=== PATIENT | female | born 2000 | race Caucasian/White ===

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

== ENCOUNTER 2021-03-25 14:36 | Outpatient (RCR) | payer BC, SELFPAY ==
[2021-03-25 08:18] VITALS: BMI 23.9
[2021-03-25 18:17] LABS: Absolute Lymphocyte Count 1.73 X10^3/uL (0.83-4.51); Absolute Neutrophil Count 3.2 X10^3/uL (2.0-7.7); Basophil# 0.04 X10^3/uL; Basophil% 0.7 % (0-1); Eosinophil# 0.03 X10^3/uL; Eosinophils% 0.6 % (0-5); Hematocrit 45.2 % (37-47); Hemoglobin 14.1 g/dL (12.0-15.0); Lymphocyte # 1.73 X10^3/ul (0.83-4.51); Lymphocyte % 32.2 % (19-41); Mean Corp Hgb Conc 31.2 g/dL (32-36); Mean Corpuscular Hgb 26.1 pg (27.0-32.0); Mean Corpuscular Volume 83.7 fL (81-99); Mean Platelet Vol. 10.8 fl (6.2-12.0); Monocyte# 0.42 X10^3/uL; Monocyte% 7.8 % (0-10); NRBC Flagged by Analyzer 0 % (0-5); Neutrophil # 3.15 X10^3/uL (2.7-7.7); Neutrophil % 58.5 % (47-70); Platelet Count 333 K/mm3 (150-450); RBC Distribution Width CV 13.3 % (11.6-14.6); RBC Distribution Width SD 40.8 fl (35.1-43.9); White Blood Count 5.4 K/mm3 (4.4-11.0)
[2021-03-25 18:41] LABS: ALB/GLOB Ratio 1.1 RATIO (0.9-2.4); AST(SGOT) 22 U/L (15-37); Alanine Aminotransfer ALT/SGPT 30 U/L (13-56); Albumin, Serum 3.8 g/dL (3.2-5.0); Alkaline Phosphatase 347 U/L (45-117); Anion Gap 3 (5-15); BUN 9 mg/dL (7-18); BUN/Creat Ratio 10.1 RATIO (10-20); Calcium,Total 9.4 mg/dL (8.5-10.1); Chloride 106 mmol/L (98-107); Creatinine, Serum 0.89 mg/dL (0.55-1.02); EST Glomerular Filtration Rate 86 mL/min (>60); Est Glom Filt Rate - Afr Amer 103 mL/min (>60); Globulin 3.5 g/dL (2.2-4.2); Glucose 80 mg/dL (74-106); Magnesium 2.2 mg/dL (1.6-2.6); Phosphorus 3.9 mg/dL (2.5-4.9); Potassium 3.9 mmol/L (3.5-5.1); Protein, Total 7.3 g/dL (6.4-8.2); Sodium Level 141 mmol/L (136-145)
== END 2021-03-25 18:00 | disposition home or self-care (01) ==
LOC: MTLAB 14:36
PROVIDERS: PCP Internal Medicine
DX: F50.89 Other specified eating disorder (principal)
CPT/HCPCS: 36415; 80053; 83735; 84100; 85025

== ENCOUNTER → 2021-04-09 15:52 | Outpatient (CLI) | payer BC, SELFPAY ==
[2021-04-09 09:30] VITALS: BMI 23.9
[2021-04-09 18:08] LABS: AST(SGOT) 19 U/L (15-37); Alanine Aminotransfer ALT/SGPT 27 U/L (13-56); Albumin, Serum 3.7 g/dL (3.2-5.0); Alkaline Phosphatase 333 U/L (45-117); Bilirubin, Direct 0.12 mg/dL (0.00-0.30); Globulin 3.4 g/dL (2.2-4.2); Protein, Total 7.1 g/dL (6.4-8.2)
[2021-04-11 11:42] LABS: GGTP 12 U/L (5-55)
[2021-04-11 20:08] LABS: Chlamydia By Nucleic Acid AMP Negative (Negative)
[2021-04-11 22:39] LABS: Gonococcus By Nucleic Acid AMP Negative (Negative)
== END ==
PROVIDERS: PCP Internal Medicine; Visit Provider Obstetrics & Gynecology
DX: Z11.3 Encounter for screening for infections with a predominantly sexual mode of transmission (principal); N92.1 Excessive and frequent menstruation with irregular cycle
CPT/HCPCS: 36415; 80076; 82977; 87491; 87591

== ENCOUNTER → 2021-04-16 08:31 | Outpatient (CLI) | payer BC, SELFPAY ==
[2021-04-16 08:15] VITALS: BMI 24.3
[2021-04-16 10:25] LABS: HIV - WCH Non-Reactive (Nonreactive)
== END ==
PROVIDERS: PCP Internal Medicine; Visit Provider Obstetrics & Gynecology
DX: Z11.3 Encounter for screening for infections with a predominantly sexual mode of transmission (principal)
CPT/HCPCS: 36415; 86703

== ENCOUNTER → 2022-10-22 | Outpatient (CLI) | payer BC, SELFPAY ==
[2022-10-22 15:36] LABS: Hematocrit 48.9 % (37-47); Mean Corp Hgb Conc 32.7 g/dL (32-36); Mean Corpuscular Hgb 29.1 pg (27.0-32.0); Mean Corpuscular Volume 89.1 fL (81-99); Mean Platelet Vol. 10.1 fl (6.2-12.0); Platelet Count 302 K/mm3 (150-450); RBC Distribution Width CV 13.2 % (11.6-14.6); RBC Distribution Width SD 43.7 fl (35.1-43.9); Red Blood Count 5.49 M/mm3 (4.2-5.4); White Blood Count 6.5 K/mm3 (4.4-11.0)
[2022-10-22 15:50] LABS: Anion Gap 3 (5-15); BUN 6 mg/dL (7-18); BUN/Creat Ratio 6.4 RATIO (10-20); Calcium,Total 9.4 mg/dL (8.5-10.1); Chloride 106 mmol/L (98-107); Creatinine, Serum 0.93 mg/dL (0.55-1.02); EST Glomerular Filtration Rate 80 mL/min (>60); Est Glom Filt Rate - Afr Amer 97 mL/min (>60); Glucose 79 mg/dL (74-106); Potassium 4.5 mmol/L (3.5-5.1); Sodium Level 140 mmol/L (136-145)
[2022-10-22 17:10] LABS: HIV - WCH Non-Reactive (Nonreactive)
[2022-10-22 17:56] LABS: Chlamydia Trachomatis by PCR Negative (Negative); Neisserai gonorrhoeae by PCR Negative (Negative); Probe Check PASS; Sample Adequacy Control PASS; Specimen Processing Control PASS
[2022-10-22 17:57] LABS: Probe Check PASS; Sample Adequacy Control PASS; Specimen Processing Control PASS; Trichomonas Vag DNA by PCR Negative (Negative)
== END | disposition home or self-care (01) ==
PROVIDERS: PCP Internal Medicine
DX: Z79.899 Other long term (current) drug therapy (principal)
CPT/HCPCS: 36415; 80048; 84403; 85027; 86703; 87491; 87591; 87661

== ENCOUNTER 2024-01-15 15:00 | Outpatient (RCR) | payer BC, SELFPAY ==
--- NOTE | 2023-12-04 15:23 | HP.PTEVAL_ITS ---
Patient's Visit Information Visit Information Visit Information: MARY DENG is a 23 year old F referred to Physical Therapy by MAVERICK AGUILAR with a diagnosis of Chronic knee and ankle pain. Date of Evaluation: 12/04/23 Physical Therapist: David Olsen, LEWIST, OCS, CSCS Visit Plan Frequency: 3x /Week Duration: 4-6 Weeks Plan: 3x/week for 4-6 to teach strengthening for ankles, knees, hips, core and postural that patient can do at home with light dumbbells and bands and BW to manage chronic widespread pain. Subjective Subjective: B knee ankle , back and neck pain for a long time. no reason. been there a long time. Over a year on these. ankle pain: B 5-7/10 intermittent, mostly constant, worse with standing or driving. running worse. Not bad when sitting Knee pain : same type thing not as intense Back pain: sitting is painful if sits too long, posture is worse, sitting on computer is worse. Worse in am. neck is worse in am. Sleep is Ok, wakes up but that is normal for him. Employed: Will have surgery in begin of March. Total hysterctomy. Hobbies: Art and music, collaging, dog and cat. Limited dog walking due to pain. Basic ADLs: No problems. Walking is main exercise Objective Objective: Walks with extrenally rotated legs and slumped posture into PT I. Trasnfers I, steps I with a rail. No antalgia in gait or c/o much pain today. FW head posture with flat lumbar lordosis, slouched shoulders. Cervical and lumbar AROM is WFL and without c/o pain today. UE AROM mobile and full with strength flexion and er at 3+, abd 3+, bi and tri 4-. No myotomal abnormalities UE or LE. LE AROM WFL and hypermobile at hips and knees and ankles. Flexibility in HS and quads is good. reflexes 2/3 bi and tri adn patella and achilles Sensation in UE dn LE WNL to gross light touch. strength in core is 3/5 hips rotation and abd and ext 3/5, flexion 3+ but much pelvic instability in sitting and contralateral ext rotation. knees and ankles 3+/5 strength No real c/o pain with strength testing. Overall hypermobile and unstable - slump and - SLR - c/s compression. Balance/Special Test Scores Lower Extremity Functional Score: 64 Goals Goal 1:: I apperopriate HEp for ankle, knee, hip, core adn postural strength via HEP to limit future problems. Goal Time Frame: 4-6 Weeks Goal 2:: Pain in knees and ankles and spine 2/10 at worst adn 75% improved. Goal Time Frame: 4-6 Weeks Goal 3:: LEFS 70 Goal Time Frame: 4-6 Weeks Rehabilitation Potential Physical Therapy Diagnosis: weakness and instability leading to joint pain and diminished comfort with function Rehabilitation Potential: Good Anticipated Interventions Patient/Client Instruction: Educate patient on: Condition For the Purpose of:: To decrease pain, To improve muscle performance and motor function and To increase tolerance to activity/condition/position Therapeutic Exercise to Include: Strength training and Dynamic Lumbar Stabilization For the Purpose of:: To decrease pain, To improve nutrient delivery to tissue, To improve muscle performance and motor function, To increase tolerance to activity/condition/position and To improve ability of physical actions for home/community/work/leisure Text: Thank you for the opportunity to evaluate your patient. For Medicare and Medicare HMO plans, please review the plan of care and approve it. It will need to be FAXED BACK to us at [phone] for Medicare purposes. For Medicare only, by signing this I certify the plan of care. Please let me know if there are questions or concerns regarding this plan of care. Physician Signature: Date:
--- NOTE | 2024-01-15 15:43 | HP.PTDCSUM ---
Discharge Summary D/C summary: It has been my pleasure to treat MARY DENG referred by MAVERICK AGUILAR, with the diagnosis of Chronic knee and ankle pain for a total of 18 visit(s). Discharge Date: 01/15/24 Please see the following information for a summary of their discharge status. Subjective Subjective: Feel stronger, Pain daily 5/10 back and L foot. Knees feel alot better. Sleep is not great, not a great sleeper. Feels stronger. Can do less grocery trips from car and core stronger, sitting straighter. To doctor in March. HEP: has great HEP that he will keep doing. Pain Bilateral Back: Pain Intensity (Out of 10): 5 Bilateral Ankle: Pain Intensity (Out of 10): 4 Bilateral Knee: Pain Intensity (Out of 10): 1 Overall Improvement % Improvement: 45 Objective Objective/Function: Goals going well, pain still an issue but expected adn improving. Squatting and funcitonal strength walking looks much better. Pt can continue on his own at this point. Goals Goal 1:: I apperopriate HEp for ankle, knee, hip, core adn postural strength via HEP to limit future problems. Goal Progress: Goal Met Goal 2:: Pain in knees and ankles and spine 2/10 at worst adn 75% improved. Goal Progress: 45% Goal 3:: LEFS 70 Goal Progress: ? Plan Plan: d/c D/C Information Discharge Comments: To continue via HEP, PTB vended. d/c sentence: If there are questions or concerns regarding this patient's physical therapy, please feel free to call me at [phone]. Thank you for the referral of this patient. Sincerely, David Olsen, DPT, OCS, CSCS Balance/Gait/Functional tests Balance/Special Test Scores Lower Extremity Functional Score: 47 Improvement % Improvement: 45
== END 2024-01-15 19:00 | disposition home or self-care (01) ==
LOC: PT 15:00
PROVIDERS: PCP Internal Medicine
DX: M25.571 Pain in right ankle and joints of right foot (principal); M25.561 Pain in right knee; M25.562 Pain in left knee; M25.572 Pain in left ankle and joints of left foot; M79.641 Pain in right hand; M79.642 Pain in left hand; G89.29 Other chronic pain
CPT/HCPCS: 97110; 97161; 97530

== ENCOUNTER → 2025-07-04 | Outpatient (CLI) | payer BC, SELFPAY ==
--- NOTE | 2025-07-04 11:30 | MRI_ITS ---
PROCEDURE: LOWER EXT JOINT ONLY (ROUTINE) 07/04/2025 REASON FOR EXAM: PLANTAR FASCITIS TECHNIQUE: T1, T2, stir, MRI right ankle COMPARISON: None FINDINGS: Bones: There is normal articulation of the ankle joint. No acute fractures or dislocations. There is marrow edema in the inferior calcaneus at the plantar fascia origin. The contours of the talar dome are normal. Achilles tendon: Intact Achilles tendon. Plantar fascia: There is edema and thickening of the origin of the medial and lateral bands of the plantar fascia with adjacent soft tissue edema, consistent with plantar fasciitis. Plantar aponeurosis is intact. The lateral, medial and central cords of the plantar fascia are intact. Tendons: Evaluation of the peroneal tendons demonstrates no evidence of tendinosis or dislocation. The flexor digitorum longus, tibialis posterior and flexor hallucis longus tendons are intact. The extensor tendons are intact. The extensor retinaculum is intact and normal in signal. Sinus Tarsi: The subtalar joint is intact. Signal in the sinus tarsi is normal. Transverse and cervical ligaments are intact. Ligaments: Lateral syndesmotic ankle ligaments including the anterior and posterior tibiofibular ligaments are intact. The anterior and posterior talofibular ligaments are intact. The medial ankle ligaments including the deltoid and spring ligaments are intact. Effusion: There is no joint effusion. Subcutaneous edema is noted at the medial and lateral malleolus with no organized or drainable collection. MRI/Lower Ext Joint Only (Routine) IMPRESSION: There is marrow edema in the inferior calcaneus at the plantar fascia origin. There is edema and thickening of the origin of the medial and lateral bands of the plantar fascia with adjacent soft tissue edema, consistent with plantar fasciitis. Subcutaneous edema is noted at the medial and lateral malleolus with no organiz ed or drainable collection. The differential includes cellulitis and venous stasis. Reading Location: [facility]
== END | disposition home or self-care (01) ==
PROVIDERS: PCP Internal Medicine; Referring Provider Podiatrist; Visit Provider Podiatrist
DX: M72.2 Plantar fascial fibromatosis (principal); M25.572 Pain in left ankle and joints of left foot; M76.821 Posterior tibial tendinitis, right leg
CPT/HCPCS: 73721

== ENCOUNTER → 2025-07-13 | Outpatient (CLI) | payer BC, SELFPAY ==
--- NOTE | 2025-07-13 13:00 | VDLE_ITS ---
Reason For Study Reason For Study: LEG PAIN/SWELLING RIGHT LEFT GSV is normal. GSV is normal. CFV is compressible, spontaneous, phasic, competent CFV is compressible, spontaneous, phasic, competent, and demonstrates normal augmentation. and demonstrates normal augmentation. FV is compressible, spontaneous, phasic, competent FV is compressible, spontaneous, phasic, competent and demonstrates normal augmentation. and demonstrates normal augmentation. POP V is compressible, spontaneous, phasic, competent POP V is compressible, spontaneous, phasic, competent and demonstrates normal augmentation. and demonstrates normal augmentation. T/P Trunk is compressible. T/P Trunk is compressible. PTV is compressible. PTV is compressible. RT PerV is compressible. LT PerV is compressible. Procedure This is a venous duplex using B-mode, color flow and spectral Doppler. Exam performed in department. A preliminary report was called and/or faxed to Dr. Schmidt @ [phone]. VL/Venous Duplex US - Cole Extrem Interpretation Summary Deep veins of the lower extremities are bilaterally patent and compressible seg mentally. There is no evidence of deep vein thrombosis on either side. Valvular competence appears intact within the p roximal deep venous systems bilaterally. The great saphenous veins appear bilaterally patent and compressible segmentall y. Ordering Physician: Jose Antonio Schmidt Referring Physician: Concepcion Hernandes Performed By: Elba Montalvo, KINJALCS, RVT
== END | disposition home or self-care (01) ==
PROVIDERS: PCP Internal Medicine; Referring Provider Podiatrist; Visit Provider Podiatrist
DX: M79.661 Pain in right lower leg (principal); M79.662 Pain in left lower leg; I87.2 Venous insufficiency (chronic) (peripheral)
CPT/HCPCS: 93970